=== PATIENT | female | born 1950 | race Hispanic/Latino ===

== ENCOUNTER 2019-04-14 11:36 | Emergency (ER) | payer OTHER ==
[2019-04-14 12:15] LABS: Urine Blood NEGATIVE (NEG); Urine Glucose 2+ (NEG); Urine Protein NEGATIVE (NEG); Urine Specific Gravity 1.015 (1.005-1.030)
--- NOTE | 2019-04-14 13:09 | RAD REPORT ---
EXAM DESCRIPTION: CT - Stone Protocol - 04/14/2019 12:56 pm CLINICAL HISTORY: back pain COMPARISON: No comparisons TECHNIQUE: Axial 5 mm thick images were obtained without oral or IV contrast. The [id number] span s the entirety of the system including uppermost abdomen and lung bases. All CT scans are performed using dose optimization technique as appropriate and may include automated exposure control or mA/KV adjustment according to patient size. FINDINGS: No hydronephrosis is present and no obstructing ureteral calculi. No suspicious renal mass es. Isodense masses and pyelonephritis are not excluded on a stone protocol CT scan. No urinary bladd er suspicious finding. No significant adrenal finding. Phleboliths are seen along the pelvic floor. A rterial calcifications are present. Uterus and ovaries show no suspicious findings. Imaged portions of the liver, spleen and pancreas show no suspicious findings on non-contrast imaging . Cholecystectomy clips are present. No biliary tree dilatation. No suspicious bowel findings. No hernia, mass or bulky lymphadenopathy noted. No free air or pneumatosis. Trace amount of free flui d is present in the cul de sac. No significant bony abnormality. IMPRESSION: No hydronephrosis, obstructing calculus or other acute finding. Isodense masses and pyelonephritis are not excluded on stone protocol technique. Liver attenuation is borderline fatty infiltrated.
[2019-04-14] MEDS ORDERED: NA CHLORIDE 0.9% 1,000 ML ONE ×2 (13:16→15:24)
[2019-04-14 13:47] LABS: Absolute Lymphocytes (CBC) 1.8 K/uL (0.7-4.9); Basophils % 0.8 % (0-1.3); Hematocrit 42.1 % (36.0-45.0); Lymphocytes % 34.2 % (15.3-44.8); MPV 10.8 fL (7.6-11.3); RBC Red Blood Cell Count 4.92 M/uL (3.86-4.86)
[2019-04-14 13:54] LABS: Potassium 4.2 mmol/L (3.5-5.1)
[2019-04-14] MEDS ORDERED: INSULIN -REGULAR HUMAN 50 UNIT/0.5 ML ML ONE (14:24)
--- NOTE | 2019-04-14 16:14 | ER ---
Nurse's Notes [facility] Name: Bridget Hyde Age: 68 yrs Sex: Female : 1950 Arrival Date: 04/14/2019 Time: 11:39 Bed 24 Private MD: Diagnosis: Dehydration;Low back pain;Hyperglycemia, unspecified Presentation: 04/14 11:45 Presenting complaint: Patient states: I went in Friday at [facility] because I have a low ca1 back pain just right now. They told me I have a UTI, they put me in antibiotics. But I am still hurting a lot. Reports nausea, vomiting and headache. Reports urinary frequency. Transition of care: patient was not received from another setting of care. Onset of symptoms was April 14, 2019. Risk Assessment: Do you want to hurt yourself or someone else? Patient reports no desire to harm self or others. Initial Sepsis Screen: Does the patient meet any 2 criteria? No. Patient's initial sepsis screen is negative. Does the patient have a suspected source of infection? No. Patient's initial sepsis screen is negative. Care prior to arrival: Medication(s) given: Advil. 11:45 Method Of Arrival: Ambulatory ca1 11:45 Acuity: ITZ 3 ca1 Triage Assessment: 12:41 General: Appears in no apparent distress. uncomfortable, Behavior is calm, cooperative, vc appropriate for age. Pain: Complains of pain in lumbar area, left mid back and right mid back Also complains of nausea, urinary frequency. Musculoskeletal: Circulation, motion, and sensation intact. Range of motion: intact in all extremities. Historical: - Allergies: 11:47 No Known Allergies; ca1 - Home Meds: 11:47 Macrobid 100 mg Oral cap 1 cap every 12 hours [Active]; rosuvastatin 10 mg oral tab 1 ca1 tab once daily [Active]; pioglitazone 15 mg oral tab 1 tab once daily [Active]; Novolog 100 unit/mL Sub-Q soln [Active]; Levemir FlexTouch 100 unit/mL (3 mL) subcutaneous inpn [Active]; - PMHx: 11:47 Hypertension; Diabetes - IDDM; Hyperlipidemia; ca1 - PSHx: 11:47 Cholecystectomy; Tonsillectomy; Appendectomy; Tubal ligation; ca1 - Immunization history:: Adult Immunizations up to date, Pneumococcal vaccine is up to date, Flu vaccine is not up to date. - Coronavirus screen:: The patient has NOT traveled to [place] in the past 14 days. The patient has NOT had contact with known/suspected case of Coronavirus?. - Social history:: Smoking status: Patient denies any tobacco usage or history of. - Ebola Screening: : Patient negative for fever greater than or equal to 101.5 degrees Fahrenheit, and additional compatible Ebola Virus Disease symptoms Patient denies exposure to infectious person Patient denies travel to an Ebola-affected area in the 21 days before illness onset No symptoms or risks identified at this time. Screenin:30 Abuse screen: Denies threats or abuse. Nutritional screening: No deficits noted. vc Tuberculosis screening: No symptoms or risk factors identified. Fall Risk None identified. Assessment: 12:42 General: Appears in no apparent distress. uncomfortable, Behavior is calm, cooperative, vc appropriate for age. Pain: Complains of pain in right mid back and left mid back and lumbar area. Neuro: Level of Consciousness is awake, alert, obeys commands, Oriented to person, place, time, situation. Cardiovascular: Patient's skin is warm and dry. Respiratory: Respiratory effort is even, unlabored. GI: No signs and/or symptoms were reported involving the gastrointestinal system. : Reports urinary frequency. EENT: No signs and/or symptoms were reported regarding the EENT system. Derm: Skin temperature is warm. Musculoskeletal: Circulation, motion, and sensation intact. Range of motion: intact in all extremities. 13:08 Reassessment: Patient and/or family updated on plan of care and expected duration. Pain vc level reassessed. Patient is alert, oriented x 3, equal unlabored respirations, skin warm/dry/pink. No needs or requests at this time. 13:56 Reassessment: Patient and/or family updated on plan of care and expected duration. Pain vc level reassessed. Patient is alert, oriented x 3, equal unlabored respirations, skin warm/dry/pink. Patients daughter at bedside. 15:00 Reassessment: Patient and/or family updated on plan of care and expected duration. Pain vc level reassessed. Patient is alert, oriented x 3, equal unlabored respirations, skin warm/dry/pink. 15:59 Reassessment: Patient and/or family updated on plan of care and expected duration. Pain vc level reassessed. Patient is alert, oriented x 3, equal unlabored respirations, skin warm/dry/pink. Patient states feeling better. Patient states symptoms have improved. Vital Signs: 11:47 BP 116 / 75; Pulse 79; Resp 16 S; Temp 98.1(O); Pulse Ox 96% on R/A; Weight 61.23 kg ca1 (R); Height 5 ft. (152.40 cm) (R); Pain 8/10; 13:00 BP 129 / 69; Pulse 63; Resp 17; Pulse Ox 98% on R/A; vc 13:57 BP 134 / 61; Pulse 61; Resp 17; Pulse Ox 98% on R/A; vc 15:00 BP 146 / 59; Pulse 57; Resp 15; Pulse Ox 100% on R/A; vc 11:47 Body Mass Index 26.37 (61.23 kg, 152.40 cm) ca1 ED Course: 11:39 Patient arrived in ED. ag5 11:47 Arm band placed on right wrist. ca1 11:48 Triage completed. ca1 12:17 Valery Vazquez FNP-C is PHCP. snw 12:17 Javier Gilbert MD is Attending Physician. snw 12:27 Sherri Wisdom, VIJAY is Primary Nurse. vc 12:30 Urine Dipstick--Ancillary (enter results) Sent. vc 12:42 Patient has correct armband on for positive identification. vc 13:20 Inserted saline lock: 20 gauge in right antecubital area, using aseptic technique. vc Blood collected. 16:28 No provider procedures requiring assistance completed. IV discontinued, intact, vc bleeding controlled, No redness/swelling at site. Pressure dressing applied. Administered Medications: 13:27 Drug: NS 0.9% 1000 ml Route: IV; Rate: 1 bolus; Site: right antecubital; vc 15:20 Follow up: IV Intake: 1000ml vc 14:27 Drug: Insulin Regular Human 5 units {Co-Signature: ortega (Adriana Chan RN).} Route: vc Sub-Q; Site: right lower abdomen; 15:55 Follow up: Response: No adverse reaction; Blood sugar is lowered vc 14:28 Drug: Insulin Regular Human 5 units {Co-Signature: ortega (Adriana Chan RN).} Route: vc IVP; Site: right antecubital; 15:56 Follow up: Response: No adverse reaction; Blood sugar is lowered vc 15:23 Drug: NS 0.9% 1000 ml Route: IV; Rate: 1 bolus; Site: right antecubital; vc 16:28 Follow up: IV Intake: 700ml vc Intake: 15:20 IV: 1000ml; Total: 1000ml. vc 16:28 IV: 700ml; Total: 1700ml. vc Outcome: 16:13 Discharge ordered by . snw 16:29 Discharged to home ambulatory, with family. vc 16:29 Condition: good 16:29 Discharge instructions given to patient, family, Instructed on discharge instructions, follow up and referral plans. medication usage, Demonstrated understanding of instructions, follow-up care, medications. 16:30 Patient left the ED. vc Signatures: Valery Vazquez, SOLAR BUSINESS DEVELOPER-C SOLAR BUSINESS DEVELOPER-Csnw Maggie Hurley RN RN ca1 Stephanie Mendiola ag5 Sherri Wisdom RN RN vc Adriana Chan RN
--- NOTE | 2019-04-14 16:14 | EDPHYS ---
Physician Documentation [facility] Name: Bridget Hyde Age: 68 yrs Sex: Female : 1950 Arrival Date: 04/14/2019 Time: 11:39 Bed 24 Private MD: ED Physician Javier Gilbert HPI: 04/14 13:53 This 68 yrs old Female presents to ER via Ambulatory with complaints of Back snw Pain. 13:53 The patient presents with pain that is acute, with no known mechanism of injury. The snw symptoms are located in the low back. Onset: The symptoms/episode began/occurred suddenly, 4 day(s) ago, and became persistent. The pain does not radiate. Associated signs and symptoms: Pertinent positives: dysuria, nausea, weakness. The problem was sustained dx with UTI, started Macrobid on Friday. Feeling more fatigued, no worse.. Severity of symptoms: At their worst the symptoms were moderate, severe. The patient has experienced a previous episode. The patient has been recently seen by a physician:. Historical: - Allergies: 11:47 No Known Allergies; ca1 - Home Meds: 11:47 Macrobid 100 mg Oral cap 1 cap every 12 hours [Active]; rosuvastatin 10 mg oral tab 1 ca1 tab once daily [Active]; pioglitazone 15 mg oral tab 1 tab once daily [Active]; Novolog 100 unit/mL Sub-Q soln [Active]; Levemir FlexTouch 100 unit/mL (3 mL) subcutaneous inpn [Active]; - PMHx: 11:47 Hypertension; Diabetes - IDDM; Hyperlipidemia; ca1 - PSHx: 11:47 Cholecystectomy; Tonsillectomy; Appendectomy; Tubal ligation; ca1 - Immunization history:: Adult Immunizations up to date, Pneumococcal vaccine is up to date, Flu vaccine is not up to date. - Coronavirus screen:: The patient has NOT traveled to [place] in the past 14 days. The patient has NOT had contact with known/suspected case of Coronavirus?. - Social history:: Smoking status: Patient denies any tobacco usage or history of. - Ebola Screening: : Patient negative for fever greater than or equal to 101.5 degrees Fahrenheit, and additional compatible Ebola Virus Disease symptoms Patient denies exposure to infectious person Patient denies travel to an Ebola-affected area in the 21 days before illness onset No symptoms or risks identified at this time. ROS: 13:51 Eyes: Negative for injury, pain, redness, and discharge, ENT: Negative for injury, snw pain, and discharge, Neck: Negative for injury, pain, and swelling, Cardiovascular: Negative for chest pain, palpitations, and edema, Respiratory: Negative for shortness of breath, cough, wheezing, and pleuritic chest pain, Abdomen/GI: Negative for abdominal pain, nausea, vomiting, diarrhea, and constipation, : Negative for injury, bleeding, discharge, and swelling, MS/Extremity: Negative for injury and deformity, Skin: Negative for injury, rash, and discoloration, Neuro: Negative for headache, weakness, numbness, tingling, and seizure, Psych: Negative for depression, anxiety, suicide ideation, homicidal ideation, and hallucinations. 13:51 Constitutional: Positive for body aches, fatigue, malaise, poor PO intake. 13:51 Back: Positive for pain at rest, pain with movement, of the low back area. Exam: 13:51 Head/Face: Normocephalic, atraumatic. Eyes: Pupils equal round and reactive to light, snw extra-ocular motions intact. Lids and lashes normal. Conjunctiva and sclera are non-icteric and not injected. Cornea within normal limits. Periorbital areas with no swelling, redness, or edema. ENT: Nares patent. No nasal discharge, no septal abnormalities noted. Tympanic membranes are normal and external auditory canals are clear. Oropharynx with no redness, swelling, or masses, exudates, or evidence of obstruction, uvula midline. Mucous membranes moist. Neck: Trachea midline, no thyromegaly or masses palpated, and no cervical lymphadenopathy. Supple, full range of motion without nuchal rigidity, or vertebral point tenderness. No Meningismus. Chest/axilla: Normal chest wall appearance and motion. Nontender with no deformity. No lesions are appreciated. Cardiovascular: Regular rate and rhythm with a normal S1 and S2. No gallops, murmurs, or rubs. Normal PMI, no JVD. No pulse deficits. Respiratory: Lungs have equal breath sounds bilaterally, clear to auscultation and percussion. No rales, rhonchi or wheezes noted. No increased work of breathing, no retractions or nasal flaring. Abdomen/GI: Soft, non-tender, with normal bowel sounds. No distension or tympany. No guarding or rebound. No evidence of tenderness throughout. Back: No spinal tenderness. No costovertebral tenderness. Full range of motion. Skin: Warm, dry with normal turgor. Normal color with no rashes, no lesions, and no evidence of cellulitis. MS/ Extremity: Pulses equal, no cyanosis. Neurovascular intact. Full, normal range of motion. Neuro: Awake and alert, GCS 15, oriented to person, place, time, and situation. Cranial nerves II-XII grossly intact. Motor strength 5/5 in all extremities. Sensory grossly intact. Cerebellar exam normal. Normal gait. Psych: Awake, alert, with orientation to person, place and time. Behavior, mood, and affect are within normal limits. 13:51 Constitutional: The patient appears uncomfortable, fatigued Vital Signs: 11:47 BP 116 / 75; Pulse 79; Resp 16 S; Temp 98.1(O); Pulse Ox 96% on R/A; Weight 61.23 kg ca1 (R); Height 5 ft. (152.40 cm) (R); Pain 8/10; 13:00 BP 129 / 69; Pulse 63; Resp 17; Pulse Ox 98% on R/A; vc 13:57 BP 134 / 61; Pulse 61; Resp 17; Pulse Ox 98% on R/A; vc 15:00 BP 146 / 59; Pulse 57; Resp 15; Pulse Ox 100% on R/A; vc 11:47 Body Mass Index 26.37 (61.23 kg, 152.40 cm) ca1 MDM: 12:18 Patient medically screened. snw 15:45 Data reviewed: vital signs, nurses notes. Data interpreted: Pulse oximetry: on room air snw is 100 %. Interpretation: normal. Counseling: I had a detailed discussion with the patient and/or guardian regarding: the historical points, exam findings, and any diagnostic results supporting the discharge/admit diagnosis, the presence of at least one elevated blood pressure reading (>120/80) during this emergency department visit, lab results, radiology results, the need for outpatient follow up. Response to treatment: the patient's symptoms have markedly improved after treatment. ED course: pt feeling much better, will allow remainder of IVF to infuse and discharge to home. . 04/14 12:08 Order name: Urine Dipstick--Ancillary (enter results) bd 04/14 12:15 Order name: Urine Dipstick-Ancillary; Complete Time: 12:18 EDMS 04/14 12:39 Order name: Urine Culture snw 04/14 13:08 Order name: CBC with Diff snw 04/14 13:08 Order name: Chem 7 snw 04/14 13:08 Order name: Blood Culture Adult (2) snw 04/14 12:39 Order name: CT Stone Protocol snw 04/14 13:12 Order name: CT; Complete Time: 13:13 EDMS 04/14 13:49 Order name: CBC with Automated Diff; Complete Time: 13:50 EDMS 04/14 13:55 Order name: Basic Metabolic Panel; Complete Time: 14:04 EDMS 04/14 16:07 Order name: Glucose, Ancillary Testing; Complete Time: 16:07 EDMS 04/14 15:44 Order name: FSBS; Complete Time: 15:57 snw Administered Medications: 13:27 Drug: NS 0.9% 1000 ml Route: IV; Rate: 1 bolus; Site: right antecubital; vc 15:20 Follow up: IV Intake: 1000ml vc 14:27 Drug: Insulin Regular Human 5 units {Co-Signature: ortega Chan RN).} Route: vc Sub-Q; Site: right lower abdomen; 15:55 Follow up: Response: No adverse reaction; Blood sugar is lowered vc 14:28 Drug: Insulin Regular Human 5 units {Co-Signature: ortega (Adriana Chan RN).} Route: vc IVP; Site: right antecubital; 15:56 Follow up: Response: No adverse reaction; Blood sugar is lowered vc 15:23 Drug: NS 0.9% 1000 ml Route: IV; Rate: 1 bolus; Site: right antecubital; vc 16:28 Follow up: IV Intake: 700ml vc Disposition: 17:33 Co-signature as Attending Physician, Javier Gilbert MD I agree with the assessment and kdr plan of care. Disposition: 04/14/19 16:13 Discharged to Home. Impression: Dehydration, Low back pain, Hyperglycemia, unspecified. - Condition is Stable. - Discharge Instructions: Back Pain, Adult, Dehydration, Adult, Diabetes and Sick Day Management, Blood Glucose Monitoring, Adult, Rehydration, Adult, Heat Therapy. - Medication Reconciliation Form, Thank You Letter, Antibiotic Education, Prescription Opioid Use form. - Follow up: Emergency Department; When: As needed; Reason: Worsening of condition. Follow up: Private Physician; When: 2 - 3 days; Reason: Recheck today's complaints, Continuance of care, Re-evaluation by your physician. - Notes: Please continue Macrobid until completed Signatures: Dispatcher [employer] EDMS Javier Gilbert MD MD [facility] Valery Vazquez, JALOUSIE INSTALLER-C JALOUSIE INSTALLER-Csnw Maggie Hurley RN RN ca1 Sherri Wisdom RN RN vc Adriana Chan RN Corrections: (The following items were deleted from the chart) 16:30 16:13 04/14/2019 16:13 Discharged to Home. Impression: Dehydration; Low back pain; vc Hyperglycemia, unspecified. Condition is Stable. Forms are Medication Reconciliation Form, Thank You Letter, Antibiotic Education, Prescription Opioid Use. Follow up: Emergency Department; When: As needed; Reason: Worsening of condition. Follow up: Private Physician; When: 2 - 3 days; Reason: Recheck today's complaints, Continuance of care, Re-evaluation by your physician. snw
[2019-04-15 22:25] VITALS: TEMP 98.1
[2019-04-15 22:29] VITALS: BP 146/59; O2SAT 100
== END 2019-04-14 16:30 | disposition home or self-care (01) ==
LOC: ER 11:36
DX: E86.0 Dehydration (principal); E11.65 Type 2 diabetes mellitus with hyperglycemia; I10 Essential (primary) hypertension; E78.5 Hyperlipidemia, unspecified; Z79.4 Long term (current) use of insulin
CPT/HCPCS: 87040 ×2; 87088; 85025; 87086; 80048; 36415; 82947; 81003; 76377; 74176; 96372; 96374; 99284; J7030 ×2